=== PATIENT | female | born 1965 | race Caucasian/White ===

== ENCOUNTER 2021-04-08 06:02 | Day surgery (SDC) | payer OTHER, SELFPAY ==
[2021-04-02 10:58] VITALS: BMI 33.3
--- NOTE | 2021-04-07 11:13 | HP_ITS ---
DATE OF SERVICE: 04/08/2021 DATE OF PROPOSED SURGERY: April 08, 2021 PREOPERATIVE DIAGNOSES: 1. Hallux abductovalgus, right foot. 2. Dislocated sesamoid, right foot. PLANNED PROCEDURES: 1. North bunionectomy with open reduction internal fixation, right foot. 2. Excision of dislocated sesamoid, right foot. PLANNED ANESTHESIA: Either MAC or general anesthesia. CHIEF COMPLAINT AND HISTORY OF PRESENT ILLNESS: Thao Martines is a 55-year-old female who relates history of painful bunion deformities of both feet, the right foot being more severe than the left, present over the past several years' duration. Her pain is aggravated by shoe gear and walking activity. Conservative treatment consisting of custom orthotics, altered shoe gear, protective padding, topical and oral nonsteroidal anti-inflammatory medications have all proven ineffective and the patient is now requesting surgical treatment. PAST MEDICAL HISTORY: Remarkable for PTSD from her service, anxiety, arthritis, depression, migraine headaches. CURRENT MEDICATIONS: Docusate 100 mg, zolpidem 10 mg, vortioxetine 10 mg, carboxymethylcellulose ophthalmic solution, estradiol, calcium polycarbophil, diclofenac gel, and progesterone. ALLERGIES: PATIENT HAS NEGATIVE REACTION TO SULFA MEDICATIONS, BUPROPION, SERTRALINE. FAMILY HISTORY: Significant for history of CVA. SOCIAL HISTORY: The patient denies smoking, drinks 1 to 2 cups of coffee per day, relates occasional alcohol consumption and denies use of any recreational drugs. PHYSICAL EXAMINATION: VASCULAR: The patient displays +2/4 pulses in DP and PT arteries bilaterally with normal cap refill time noted in bilateral feet. NEUROLOGIC: Intact sensation bilateral. The patient does have pain on palpation of her bunion deformities, bilateral great toe joint. DERMATOLOGIC: Intact skin. ORTHOPEDIC: Medial and dorsal prominence of the first metatarsal head with pain on palpation noted. The patient was seen in my office most recently today, April 05, 2021. Preoperative medical clearance has been provided by the patient's primary care physician, Dr. Viktoria Sims. JENNIFER Dewey/MARTHA / [id number]
--- NOTE | 2021-04-07 12:57 | P.CONAN_ITS ---
Documented by User: Kiki Wakefield NP 04/07/21 12:58 HPI - Anesthesia Eval Consult details Narrative: 55yo F for Right Bunionectomy North open ORIF and excision of a sesamoid bone PCP cleared PMFSH Past Medical History Medical History Arthritis Chronic headache COVID-19 vaccine series completed GERD (gastroesophageal reflux disease) IBS (irritable bowel syndrome) Murmur, cardiac Surgical History Surgical History H/O colonoscopy History of tonsillectomy and adenoidectomy Hx of tubal ligation Social History Social History Are you a primary skin care technician to a significant other at home: No Patient Tobacco Use Status: Never used Tobacco Use of substances other than those prescribed or required for medical reasons: No Have you been hit, kicked, punched, or otherwise hurt by someone within the past year? If so, by whom?: No Are you DNR?: No Advance Directives: No Advance Directives Information Provided: No (declined brochure) Advance Directives on File: No Recently lost weight without trying: No Eating poorly because of decreased appetite: No Nutrition Risks: No Nutritional Risk Patient : No Poor oral hygiene: No Meds Allergies Allergy/AdvReac Type Severity Reaction Status Date / Time bupropion Allergy Unknown Verified 04/08/21 06:32 sertraline Allergy Unknown Verified 04/08/21 06:32 Sulfa (Sulfonamide Allergy Unknown Verified 04/08/21 06:32 Antibiotics) sulfamethoxazole Allergy Unknown Verified 04/08/21 06:32 [From Bactrim] trimethoprim [From Bactrim] Allergy Unknown Verified 04/08/21 06:32 Home Medications Medication Instructions Recorded Confirmed Last Taken Type caffeine 200 mg tablet 200 mg PO QAM 04/02/21 04/02/21 Unknown History calcium polycarbophil 625 mg tablet 625 mg PO BID 04/02/21 04/02/21 Unknown History divalproex 500 mg tablet,extended 500 mg PO DAILY 04/02/21 04/02/21 Unknown History release 24 hr docusate sodium 100 mg capsule 100 mg PO BID 04/02/21 04/02/21 Unknown History estradiol 0.05 mg/24 hr weekly 1 patch TRANSDERMAL QWEEK 04/02/21 04/02/21 Unknown History transdermal patch omeprazole 20 mg tablet,delayed 20 mg PO DAILY PRN 04/02/21 04/02/21 Unknown History release progesterone micronized 100 mg 100 mg PO QAM 04/02/21 04/02/21 Unknown History capsule vortioxetine 20 mg tablet 20 mg PO DAILY 04/02/21 04/02/21 Unknown History (Trintellix) zolpidem 10 mg tablet (Ambien) 10 mg PO BEDTIME PRN 04/02/21 04/02/21 Unknown History Exam Exam Date and Time: April 07, 2021 1257 Height,Weight and Vital Signs: Height 5 ft 5 in Weight 90.718 kg Assessment and Plan Assessment Anesthesia Assessment: Chart Reviewed Documented by User: Kemi Patiño MD 04/08/21 07:15 PMFSH Past Medical History Medical History Arthritis Chronic headache COVID-19 vaccine series completed GERD (gastroesophageal reflux disease) IBS (irritable bowel syndrome) Murmur, cardiac Functional capacity: independent ambulation Patient : No Family History Family history of problems with anesthesia: No Surgical History Surgical History H/O colonoscopy History of tonsillectomy and adenoidectomy Hx of tubal ligation History of Problems with Anesthesia: No Social History Social History Are you a primary skin care technician to a significant other at home: No Patient Tobacco Use Status: Never used Tobacco Use of substances other than those prescribed or required for medical reasons: No Have you been hit, kicked, punched, or otherwise hurt by someone within the past year? If so, by whom?: No Are you DNR?: No Advance Directives: No Advance Directives Information Provided: No (declined brochure) Advance Directives on File: No Recently lost weight without trying: No Eating poorly because of decreased appetite: No Nutrition Risks: No Nutritional Risk Patient : No Poor oral hygiene: No Meds Allergies Allergy/AdvReac Type Severity Reaction Status Date / Time bupropion Allergy Unknown Verified 04/08/21 06:32 sertraline Allergy Unknown Verified 04/08/21 06:32 Sulfa (Sulfonamide Allergy Unknown Verified 04/08/21 06:32 Antibiotics) sulfamethoxazole Allergy Unknown Verified 04/08/21 06:32 [From Bactrim] trimethoprim [From Bactrim] Allergy Unknown Verified 04/08/21 06:32 Home Medications Medication Instructions Recorded Confirmed Last Taken Type caffeine 200 mg tablet 200 mg PO QAM 04/02/21 04/02/21 Unknown History calcium polycarbophil 625 mg tablet 625 mg PO BID 04/02/21 04/02/21 Unknown History divalproex 500 mg tablet,extended 500 mg PO DAILY 04/02/21 04/02/21 Unknown History release 24 hr docusate sodium 100 mg capsule 100 mg PO BID 04/02/21 04/02/21 Unknown History estradiol 0.05 mg/24 hr weekly 1 patch TRANSDERMAL QWEEK 04/02/21 04/02/21 Unknown History transdermal patch omeprazole 20 mg tablet,delayed 20 mg PO DAILY PRN 04/02/21 04/02/21 Unknown History release progesterone micronized 100 mg 100 mg PO QAM 04/02/21 04/02/21 Unknown History capsule vortioxetine 20 mg tablet 20 mg PO DAILY 04/02/21 04/02/21 Unknown History (Trintellix) zolpidem 10 mg tablet (Ambien) 10 mg PO BEDTIME PRN 04/02/21 04/02/21 Unknown History Exam Airway Mallampati Class: III TM Dist: >3cm Neck ROM: Full Heart: RRR Lungs: CTA Assessment and Plan Final Anesthetic Review Family History of Problems with Anesthesia: No History of Problems with Anesthesia: No ASA Class: II Final Preanesthetic Review: No Changes in Pt Med Stat, Meds/Allgs Chart Reviewed, Consent Obtained/Reviewed and Anes Risks/Benef Reviewed Patient Risk: Low Procedure Risk: Low Anesthetic Plan Anesthetic Plan: MAC: Disposition: Standard PACU
[2021-04-08 06:34] VITALS: BP 133/64; PULSE 83; RESP 18; TEMP 36.4; O2SAT 97
[2021-04-08] MEDS: Lactated Ringers 1,000 ML 100 ML IVCONT (06:54)
--- NOTE | 2021-04-08 07:20 | HO.ANESPROP2 ---
[facility] Past Medical History Medical History Arthritis Chronic headache COVID-19 vaccine series completed GERD (gastroesophageal reflux disease) IBS (irritable bowel syndrome) Murmur, cardiac Functional capacity: independent ambulation Family History Family history of problems with anesthesia: No Surgical History Surgical History H/O colonoscopy History of tonsillectomy and adenoidectomy Hx of tubal ligation History of Problems with Anesthesia: No Social History Social History Are you a primary medical care evaluation specialist to a significant other at home: No Patient Tobacco Use Status: Never used Tobacco Use of substances other than those prescribed or required for medical reasons: No Have you been hit, kicked, punched, or otherwise hurt by someone within the past year? If so, by whom?: No Are you DNR?: No Advance Directives: No Advance Directives Information Provided: No (declined brochure) Advance Directives on File: No Recently lost weight without trying: No Eating poorly because of decreased appetite: No Nutrition Risks: No Nutritional Risk Patient : No Poor oral hygiene: No Meds Allergies Allergy/AdvReac Type Severity Reaction Status Date / Time bupropion Allergy Unknown Verified 04/08/21 06:32 sertraline Allergy Unknown Verified 04/08/21 06:32 Sulfa (Sulfonamide Allergy Unknown Verified 04/08/21 06:32 Antibiotics) sulfamethoxazole Allergy Unknown Verified 04/08/21 06:32 [From Bactrim] trimethoprim [From Bactrim] Allergy Unknown Verified 04/08/21 06:32 Active Medications: Current Medications Cefazolin Sodium/Dextrose (Ancef) 2 gm in 50 mls @ 100 mls/hr IV PREOP ONE Stop: 04/08/21 07:29 Lactated Ringer's (Lr) 1,000 mls @ 100 mls/hr IVCONT .Q10H MIRNA Last Admin: 04/08/21 06:54 Dose: 100 mls/hr Documented by: Home Medications Medication Instructions Recorded Confirmed Last Taken Type caffeine 200 mg tablet 200 mg PO QAM 04/02/21 04/02/21 Unknown History calcium polycarbophil 625 mg tablet 625 mg PO BID 04/02/21 04/02/21 Unknown History divalproex 500 mg tablet,extended 500 mg PO DAILY 04/02/21 04/02/21 Unknown History release 24 hr docusate sodium 100 mg capsule 100 mg PO BID 04/02/21 04/02/21 Unknown History estradiol 0.05 mg/24 hr weekly 1 patch TRANSDERMAL QWEEK 04/02/21 04/02/21 Unknown History transdermal patch omeprazole 20 mg tablet,delayed 20 mg PO DAILY PRN 04/02/21 04/02/21 Unknown History release progesterone micronized 100 mg 100 mg PO QAM 04/02/21 04/02/21 Unknown History capsule vortioxetine 20 mg tablet 20 mg PO DAILY 04/02/21 04/02/21 Unknown History (Trintellix) zolpidem 10 mg tablet (Ambien) 10 mg PO BEDTIME PRN 04/02/21 04/02/21 Unknown History Exam Exam Date and Time: April 08, 2021 0720 Height,Weight and Vital Signs: Height 5 ft 5 in Weight 90.718 kg Last Vital Signs Temp 97.5 F 04/08/21 06:34 Pulse 83 04/08/21 06:34 Resp 18 04/08/21 06:34 BP 133/64 04/08/21 06:34 Pulse Ox 97 04/08/21 06:34 Airway Mallampati Class: II TM Dist: >3cm Neck ROM: Full Heart: RRR Lungs: CTA Assessment and Plan Assessment Anesthesia Assessment: Anesthesia Plan Discussed Final Anesthetic Review Family History of Problems with Anesthesia: No History of Problems with Anesthesia: No ASA Class: II Final Preanesthetic Review: No Changes in Pt Med Stat, Meds/Allgs Chart Reviewed, Consent Obtained/Reviewed and Anes Risks/Benef Reviewed Patient Risk: Low Procedure Risk: Low Anesthetic Plan Anesthetic Plan: MAC: Disposition: Standard PACU
--- NOTE | 2021-04-08 07:26 | MHC.SHP ---
Pre-Procedural Eval Section A Date of Service: 04/08/21 The patient is an INPATIENT: No Changes since office visit: No Cold of Flu in the past 2 weeks, No New Medical Problems, No Changes in Medication and No Patient answered all questions The History & Physical has been completed within 30 days and I have reviewed it.: Yes Section B Chief Complaint: bunionectomy Details of Present Illness: painful bunion for many years Relevant Family History (Specify if Yes): No Allergies: Allergies Allergy/AdvReac Type Severity Reaction Status Date / Time bupropion Allergy Unknown Verified 04/08/21 06:32 sertraline Allergy Unknown Verified 04/08/21 06:32 Sulfa (Sulfonamide Allergy Unknown Verified 04/08/21 06:32 Antibiotics) sulfamethoxazole Allergy Unknown Verified 04/08/21 06:32 [From Bactrim] trimethoprim [From Bactrim] Allergy Unknown Verified 04/08/21 06:32 Plan Diagnosis/Plan: Unchanged I have reviewed the history and physical and performed a pertinent physical examination on my patient. No changes have occurred unless specified.
[2021-04-08 08:33] VITALS: BP 105/65; PULSE 68; RESP 16; TEMP 36.4; O2SAT 93
[2021-04-08 08:38] VITALS: BP 101/63; PULSE 74; RESP 16; O2SAT 95
--- NOTE | 2021-04-08 08:39 | PM.PROC ---
Brief Operative Note Date of procedure: 04/08/21 Pre-op diagnosis: hallux valgus right Post-op diagnosis: same Procedure: abdoulaye bunionectomy right with orif Anesthesia: GLMA Surgeon: Jaspreet Callaway User Interface Designer: Kristina Servin Estimated blood loss (mL): 0 Condition: stable Disposition: PACU
[2021-04-08 08:43] VITALS: BP 94/52; PULSE 72; RESP 16; O2SAT 96
[2021-04-08 08:48] VITALS: BP 99/56; PULSE 72; RESP 16; TEMP 36.2; O2SAT 95
[2021-04-08 09:03] VITALS: BP 105/70; PULSE 74; RESP 16; O2SAT 97
--- NOTE | 2021-04-08 09:41 | OP_ITS ---
SURGEON: Jaspreet Callaway DPM PREOPERATIVE DIAGNOSIS: Hallux abductovalgus, right foot. POSTOPERATIVE DIAGNOSIS: Hallux abductovalgus, right foot. PROCEDURE PERFORMED: Jairo bunionectomy with open reduction and internal fixation, right foot. ESTIMATED BLOOD LOSS: COMPLICATIONS: ANESTHESIA: Consisted of general endotracheal anesthesia. After attempted use of MAC anesthesia failed due to the patient's excessive movement. Local anesthetic was also given preoperatively. A total of 4 mL of an equal mix of 2% lidocaine with epinephrine 1:100,000 and 0.5% Marcaine plain. ASSISTANTS: SPECIMENS: INTRODUCTION: The patient was brought to the operating room, placed on the operating table in supine position. After having been suitably anesthetized with local infiltrative anesthesia, the right lower extremity was then prepped and draped in usual sterile manner. Please note that prior to the start of the procedure, the right foot was exsanguinated utilizing an Esmarch bandage and right ankle tourniquet was inflated to 250 mmHg pressure for the duration of the procedure. JAIRO BUNIONECTOMY WITH OPEN REDUCTION AND INTERNAL FIXATION RIGHT FOOT. Attention was directed to the dorsal aspect of the right first metatarsophalangeal joint where incision approximately 7 cm length was effected and centered over the dorsum of the right first MTP joint. Incision was deepened in same plane and hemostasis was acquired as necessary. The skin margins were underscored and retracted. A dorsal linear capsule incision was then effected and capsule periosteum was underscored and retracted. The hypertrophic medial eminence was resected utilizing sagittal saw. The first intermetatarsal space was exposed via blunt and sharp dissection. A lateral capsulotomy and adductor tenotomy performed and the lateral sesamoid was found to be partially dislocated. Attempts were made to see if the sesamoid should be removed, but ultimately I decided that once freeing up all the soft tissue attachments that the sesamoid would relocate without need for excision. Attention was now directed back to the medial aspect of the first metatarsal head where a modified V osteotomy was carried out through the distal metaphysis. The osteotomy was shifted laterally and impacted upon bone and maintained utilizing 2 of the Toxey cannulated screws each measuring 3.0 mm in diameter and 16 mm in length. The 2-screw fixation was found to give excellent interfragmental compression of the osteotomy and once this was achieved, the redundant medial shelf of bone was resected utilizing sagittal saw, and hypertrophic bone from the dorsal and dorsal medial aspect of the first metatarsal head was resected. The wound was irrigated with copious amounts of sterile saline. The capsule was closed with 3-0 Vicryl. Skin margins closed with 4-0 Maxon and Monocryl subcuticular and then reinforced with 4-0 nylon simple sutures. CONCLUSION: At the conclusion of this procedure, the operative site was dressed with Betadine-soaked Xeroform, sterile gauze, Kerlix fluffs, and Conform. The right ankle tourniquet was deflated. Normal blood flow was reestablished to the right lower extremity. Operative site was also injected with 5 mL of Marcaine 0.5% plain and 1 mL of dexamethasone phosphate. The patient tolerated the surgery and anesthesia well and left the operating room via cart to the recovery room with vital signs stable. FINAL DISPOSITION: The patient is discharged to home with instructions for self-care and include the followin. To keep the dressings dry, clean, and intact. 2. To keep the right leg elevated with ice above the ankle. 3. Take all medications as prescribed. 4. To limit activity to minimum. 5. Always use surgical shoe and crutches to ambulate partial weightbearing on the right foot. 6. Lastly, the patient was given prescriptions for naproxen 500 mg total #60 one p.o. b.i.d. p.c., gabapentin 300 mg total #10 one p.o. daily at bedtime, and a prescription for oxycodone 5 mg total #10, sig 1 p.o. q.6 h. p.r.n. pain. DISH MACHINE OPERATOR: Dr. Servin. JENNIFER Dewey/MARTHA / [id number]
== END 2021-04-08 09:28 | disposition home or self-care (01) ==
PROVIDERS: PCP Family Medicine; Visit Provider Podiatrist
PROC: (CPT 28292; principal; 2021-04-08 07:30)
DX: M20.11 Hallux valgus (acquired), right foot (principal); M21.611 Bunion of right foot; M25.871 Other specified joint disorders, right ankle and foot; M17.10 Unilateral primary osteoarthritis, unspecified knee; E78.5 Hyperlipidemia, unspecified; K21.9 Gastro-esophageal reflux disease without esophagitis; Z79.899 Other long term (current) drug therapy
CPT/HCPCS: 28299; 88304; 88311; C1713; J0690; J1100; J1885; J2250